=== PATIENT | male | born 1985 | race Two or more races ===

== ENCOUNTER 2023-10-26 14:05 | Emergency (ER) | payer BC ==
[2023-10-26] MEDS ORDERED: Cefdinir 300 MG Cap PO ONE (15:37)
[2023-10-26 15:42] LABS: CORONAVIRUS COVID-19 NAA NEGATIVE (NEGATIVE); INFLUENZA A NAA NEGATIVE (NEGATIVE)
== END 2023-10-26 17:05 | disposition home or self-care (01) ==
LOC: JD.ED 14:05
DX: J03.90 Acute tonsillitis, unspecified (principal); J02.9 Acute pharyngitis, unspecified; Z20.822 Contact with and (suspected) exposure to COVID-19
CPT/HCPCS: 0240U; 87651; 99283; A9270